=== PATIENT | female | born 1965 | race Caucasian/White ===

== ENCOUNTER 2018-12-26 11:02 | Outpatient (CLI) | payer MEDICAID ==
[~2018-12-26 11:02] MED LIST: DIL100C PO; FLUO20CA39 PO
== END 2018-12-26 23:59 | disposition home or self-care (01) ==
LOC: RAD 11:02
PROVIDERS: ATTEND Family Medicine
DX: R41.82 Altered mental status, unspecified (principal)
CPT/HCPCS: 95816